=== PATIENT | female | born 1975 | race Caucasian/White ===

== ENCOUNTER 2017-06-10 10:35 | Day surgery (SDC) | payer OTHER ==
[2017-06-10] MEDS ORDERED: THROMBIN 5000 UNIT VIAL (12:10)
[2017-06-10] MEDS ORDERED: GELATIN SIZE 100 SPONGE (12:10)
[2017-06-10] MEDS ORDERED: PROPOFOL 20 ML ×2 (12:51→13:36)
[2017-06-10] MEDS ORDERED: MIDAZOLAM 1 MG/ML 2 ML INJ (12:51)
[2017-06-10] MEDS ORDERED: METOCLOPRAMIDE 10 MG INJ (12:51)
[2017-06-10] MEDS ORDERED: ROPIVACAINE 0.2% 20 ML VIAL (12:52)
[2017-06-10 12:53] LABS: ALANINE AMINOTRANSFERASE 21 IU/L (13-69); ALBUMIN 4.3 g/dl (3.3-4.9); ALBUMIN/GLOBULIN RATIO 1.43; ALKALINE PHOSPHATASE 75 IU/L (42-121); ANION GAP 19 (8-16); ASPARTATE AMINO TRANSFERASE 20 IU/L (15-46); BILIRUBIN,INDIRECT 0.1 mg/dl (0-1.1); BILIRUBIN,TOTAL 0.1 mg/dl (0.2-1.3); CARBON DIOXIDE 18 mmol/L (21-31); CHLORIDE 115 mmol/L (97-110); GLUCOSE 99 mg/dl (70-220); TOTAL PROTEIN 7.3 g/dl (6.1-8.1)
[2017-06-10 12:54] LABS: BLOOD UREA NITROGEN 54 mg/dl (7-20); CREATININE 4.93 mg/dl (0.44-1.00); SODIUM 146 mmol/L (135-144)
[2017-06-10] MEDS ORDERED: FENTAnyl 50 MCG/ML VIAL ×2 (12:55→13:33)
[2017-06-10] MEDS ORDERED: CEFAZOLIN 1 GM INJ (12:55)
[2017-06-10] MEDS ORDERED: EPHEDrine SULFATE 50 MG/5 ML SYG (13:51)
[2017-06-10] MEDS: HEPARIN 1000 UNITS/ML 10 ML INJ (13:52)
[2017-06-10] MEDS: LIDOCAINE 1% (MPF) 30 ML INJ (13:54)
== END 2017-06-10 16:05 | disposition home or self-care (01) ==
LOC: SDS 10:35
DX: I12.0 Hypertensive chronic kidney disease with stage 5 chronic kidney disease or end stage renal disease (principal); N18.6 End stage renal disease
CPT/HCPCS: 36821; 80053; 84703